=== PATIENT | male | born 1995 ===

== ENCOUNTER 2018-12-26 21:34 | Emergency (ER) | payer OTHER ==
[2018-12-26] MEDS ORDERED: NA CHLORIDE 0.9% 1,000 ML ONE (22:51)
[2018-12-26] MEDS ORDERED: ACETAMINOPHEN 500 MG TAB ONE (22:51)
[2018-12-26 22:52] LABS: Absolute Lymphocytes (CBC) 1.2 K/uL (0.7-4.9); Basophils % 0.2 % (0-1.3); Hematocrit 44.1 % (39.6-49.0); Lymphocytes % 9.2 % (15.3-44.8); RBC Red Blood Cell Count 5.02 M/uL (4.33-5.43)
--- NOTE | 2018-12-26 23:01 | ER ---
Nurse's Notes [facility] Name: Cruz Rueda Age: 23 yrs Sex: Male : 1995 Arrival Date: 12/26/2018 Time: 21:45 Bed 6 Private MD: Diagnosis: Acute tonsillitis;Fever, unspecified Presentation: 12/26 21:50 Presenting complaint: Patient states: "I felt like I had heat exhaustion at 12:00, I've aj1 been really fatigued and my body aches, so I took a cold bath at 5:00 but I still feel like I'm really hot" Denies cough, congestion. Reports nausea. Denies V/D. Transition of care: patient was not received from another setting of care. Onset of symptoms was December 26, 2018 at 12:00. Risk Assessment: Do you want to hurt yourself or someone else? Patient reports no desire to harm self or others. Initial Sepsis Screen: Does the patient meet any 2 criteria? No. Patient's initial sepsis screen is negative. Does the patient have a suspected source of infection? No. Patient's initial sepsis screen is negative. Care prior to arrival: None. 21:50 Method Of Arrival: Ambulatory aj1 21:50 Acuity: BRANNON 4 aj1 Triage Assessment: 21:53 General: Appears in no apparent distress. comfortable, Behavior is calm, cooperative, aj1 appropriate for age. Pain: Denies pain. Neuro: Level of Consciousness is awake, alert, obeys commands. Cardiovascular: Patient's skin is warm and dry. Respiratory: Airway is patent Respiratory effort is even, unlabored, Respiratory pattern is regular, symmetrical. Historical: - Allergies: 21:53 No Known Allergies; aj1 - Home Meds: 21:53 None [Active]; aj1 - PMHx: 21:53 None; aj1 - PSHx: 21:53 lower back fusion; aj1 - Immunization history:: Flu vaccine is up to date. - Social history:: Smoking status: Patient/guardian denies using tobacco. - Ebola Screening: : Patient denies travel to an Ebola-affected area in the 21 days before illness onset. Screenin:00 Abuse screen: Denies threats or abuse. Denies injuries from another. Nutritional ak1 screening: No deficits noted. Tuberculosis screening: No symptoms or risk factors identified. Fall Risk None identified. Assessment: 22:00 General: Appears in no apparent distress. uncomfortable, ill, well groomed, Behavior is ak1 calm, cooperative. Pain: Complains of pain in headache. Neuro: Level of Consciousness is awake, alert, obeys commands, Oriented to person, place, time, situation, [place] Hand are equal bilaterally Moves all extremities. Gait is steady, Speech is normal, Facial symmetry appears normal. Cardiovascular: No deficits noted. Respiratory: Airway is patent Respiratory effort is even, unlabored, Respiratory pattern is regular, symmetrical, Breath sounds are clear bilaterally. GI: Abdomen is round non-distended, Bowel sounds present X 4 quads. Abd is soft and non tender X 4 quads. Reports nausea, tolerance of fluids. : No signs and/or symptoms were reported regarding the genitourinary system. Reports pt reported drinking water and urinating as per his norm. EENT: No signs and/or symptoms were reported regarding the EENT system. Derm: Reports fever since 0100 this morning. Musculoskeletal: Reports fatigue. 22:47 Reassessment: Patient appears in no apparent distress at this time. No changes from ak1 previously documented assessment. Patient and/or family updated on plan of care and expected duration. Pain level reassessed. Patient is alert, oriented x 3, equal unlabored respirations, skin warm/dry/pink. pt updated on approximate time frame for wait for diagnostic results. 23:35 Reassessment: pt fever decreased, pt stated "I feel much better" pt with steady gait at ak1 discharge. Vital Signs: 21:53 BP 146 / 63; Pulse 102; Resp 20; Temp 101.2; Pulse Ox 99% on R/A; Weight 97.52 kg (R); aj1 Height 6 ft. 2 in. (187.96 cm) (R); Pain 0/10; 22:00 BP 128 / 77; Pulse 94; Resp 18; Pulse Ox 97% on R/A; ak1 23:35 BP 120 / 55; Pulse 86; Resp 16; Temp 100.0; Pulse Ox 100% on R/A; Pain 0/10; ak1 21:53 Body Mass Index 27.60 (97.52 kg, 187.96 cm) aj1 ED Course: 21:45 Patient arrived in ED. ag3 21:52 Triage completed. aj1 21:53 Arm band placed on Patient placed in an exam room. aj1 21:56 Jules Jonas MD is Attending Physician. [facility] 22:00 Steph Ortez, RN is Primary Nurse. ak1 22:00 Patient has correct armband on for positive identification. Bed in low position. Call ak1 light in reach. Side rails up X 1. Pulse ox on. NIBP on. Door closed. Lights dimmed. pt informed of possible wait time. pt stated his and 2 children at outside in the car waiting for him to be discharged. 22:41 Inserted saline lock: 20 gauge antecubital area, using aseptic technique. Blood ak1 collected. placed by Steph CURRIE. 22:45 No provider procedures requiring assistance completed. Initial lab(s) drawn, by me, ak1 sent to lab. First set of blood cultures drawn by me, Second set of blood cultures drawn by me, X-ray(s) taken. 22:47 Chest Single View XRAY In Process Unspecified. EDMS 22:47 Chest Single View XRAY Sent. ak1 23:36 IV discontinued, intact, bleeding controlled, No redness/swelling at site. ak1 Administered Medications: 22:41 Drug: NS 0.9% 1000 ml Route: IV; Rate: 1 bolus; Site: right antecubital; jd3 23:30 Follow up: IV Status: Completed infusion; IV Intake: 1000ml ak1 22:41 Drug: Tylenol 1000 mg Route: PO; jd3 23:30 Follow up: Response: No adverse reaction ak1 23:30 Drug: Rocephin 1 grams Route: IV; Rate: per protocol; Site: right antecubital; ak1 23:30 Follow up: IV Status: Completed infusion; IV Intake: 10ml ak1 23:30 Drug: Augmentin 875 mg Route: PO; ak1 23:30 Follow up: Response: No adverse reaction ak1 Intake: 23:30 IV: 1000ml; Total: 1000ml. ak1 23:30 IV: 10ml; Total: 1010ml. ak1 Outcome: 23:00 Discharge ordered by . [facility] 23:36 Discharged to home ambulatory, with family. ak1 23:36 Condition: good 23:36 Discharge instructions given to patient, Instructed on discharge instructions, follow up and referral plans. medication usage, Demonstrated understanding of instructions, follow-up care, medications, Prescriptions given X 1. 23:36 Patient left the ED. ak1 Signatures: Dispatcher [employer] EDValerie Menjivar RN RN Jules Dexter MD MD cha Krenek, Amber RN RN [email or web address] Matthew Oscar RN RN Alison Aranda3 Corrections: (The following items were deleted from the chart) 22:47 22:41 Inserted saline lock: 20 gauge 24 gauge antecubital area, using aseptic ak1 technique. Blood collected. placed by Steph gutierrez
--- NOTE | 2018-12-26 23:02 | EDPHYS ---
Physician Documentation [facility] Name: Cruz Rueda Age: 23 yrs Sex: Male : 1995 Arrival Date: 12/26/2018 Time: 21:45 Bed 6 Private MD: ED Physician Jules Jonas HPI: 12/26 22:24 This 23 yrs old Other Male presents to ER via Ambulatory with complaints of Fever. tong 22:24 The patient reports fever, that was measured at 102 degrees Fahrenheit. tong 22:24 Onset: The symptoms/episode began/occurred today. Modifying factors: there are no [facility] obvious modifying factors. Associated signs and symptoms: Pertinent positives: arthralgias, chills, sore throat. Severity of symptoms: At their worst the symptoms were mild moderate in the emergency department the symptoms are unchanged. The patient has not experienced similar symptoms in the past. Historical: - Allergies: 21:53 No Known Allergies; aj1 - Home Meds: 21:53 None [Active]; aj1 - PMHx: 21:53 None; aj1 - PSHx: 21:53 lower back fusion; aj1 - Immunization history:: Flu vaccine is up to date. - Social history:: Smoking status: Patient/guardian denies using tobacco. - Ebola Screening: : Patient denies travel to an Ebola-affected area in the 21 days before illness onset. ROS: 22:25 Eyes: Negative for injury, pain, redness, and discharge, Neck: Negative for injury, tong pain, and swelling, Cardiovascular: Negative for chest pain, palpitations, and edema, Respiratory: Negative for shortness of breath, cough, wheezing, and pleuritic chest pain, Abdomen/GI: Negative for abdominal pain, nausea, vomiting, diarrhea, and constipation, Back: Negative for injury and pain, : Negative for injury, bleeding, discharge, and swelling, MS/Extremity: Negative for injury and deformity, Skin: Negative for injury, rash, and discoloration, Neuro: Negative for headache, weakness, numbness, tingling, and seizure, Psych: Negative for depression, anxiety, suicide ideation, homicidal ideation, and hallucinations, Allergy/Immunology: Negative for hives, rash, and allergies, Endocrine: Negative for neck swelling, polydipsia, polyuria, polyphagia, and marked weight changes, Hematologic/Lymphatic: Negative for swollen nodes, abnormal bleeding, and unusual bruising. 22:25 Constitutional: Positive for body aches, fever, malaise. 22:25 ENT: Positive for sore throat. Exam: 22:25 Constitutional: This is a well developed, well nourished patient who is awake, alert, tong and in no acute distress. Head/Face: Normocephalic, atraumatic. Eyes: Pupils equal round and reactive to light, extra-ocular motions intact. Lids and lashes normal. Conjunctiva and sclera are non-icteric and not injected. Cornea within normal limits. Periorbital areas with no swelling, redness, or edema. Neck: Trachea midline, no thyromegaly or masses palpated, and no cervical lymphadenopathy. Supple, full range of motion without nuchal rigidity, or vertebral point tenderness. No Meningismus. Chest/axilla: Normal chest wall appearance and motion. Nontender with no deformity. No lesions are appreciated. Cardiovascular: Regular rate and rhythm with a normal S1 and S2. No gallops, murmurs, or rubs. Normal PMI, no JVD. No pulse deficits. Respiratory: Lungs have equal breath sounds bilaterally, clear to auscultation and percussion. No rales, rhonchi or wheezes noted. No increased work of breathing, no retractions or nasal flaring. Abdomen/GI: Soft, non-tender, with normal bowel sounds. No distension or tympany. No guarding or rebound. No evidence of tenderness throughout. Back: No spinal tenderness. No costovertebral tenderness. Full range of motion. Male : Normal genitalia with no discharge or lesions. Skin: Warm, dry with normal turgor. Normal color with no rashes, no lesions, and no evidence of cellulitis. MS/ Extremity: Pulses equal, no cyanosis. Neurovascular intact. Full, normal range of motion. Neuro: Awake and alert, GCS 15, oriented to person, place, time, and situation. Cranial nerves II-XII grossly intact. Motor strength 5/5 in all extremities. Sensory grossly intact. Cerebellar exam normal. Normal gait. Psych: Awake, alert, with orientation to person, place and time. Behavior, mood, and affect are within normal limits. 22:25 ENT: Posterior pharynx: Tonsils: with erythema, no exudate, Uvula: normal, midline, swelling, that is mild, erythema, that is mild, exudate, is not appreciated. Vital Signs: 21:53 BP 146 / 63; Pulse 102; Resp 20; Temp 101.2; Pulse Ox 99% on R/A; Weight 97.52 kg (R); aj1 Height 6 ft. 2 in. (187.96 cm) (R); Pain 0/10; 22:00 BP 128 / 77; Pulse 94; Resp 18; Pulse Ox 97% on R/A; ak1 23:35 BP 120 / 55; Pulse 86; Resp 16; Temp 100.0; Pulse Ox 100% on R/A; Pain 0/10; ak1 21:53 Body Mass Index 27.60 (97.52 kg, 187.96 cm) [facility] MDM: 21:56 Patient medically screened. [facility] 22:26 Data reviewed: vital signs, nurses notes, lab test result(s), radiologic studies, plain tong films. 12/26 22:23 Order name: CBC with Diff; Complete Time: 22:57 [facility] 12/26 22:23 Order name: Comprehensive Metabolic Panel; Complete Time: 23:35 [facility] 12/26 22:23 Order name: Strep; Complete Time: 22:57 [facility] 12/26 22:23 Order name: Blood Culture Adult (2) [facility] 12/26 22:23 Order name: Urine Culture [facility] 12/26 22:24 Order name: Flu; Complete Time: 23:35 [facility] 12/26 22:23 Order name: Chest Single View XRAY [facility] 12/26 22:23 Order name: Urine Dipstick-Ancillary (obtain specimen); Complete Time: 23:31 [facility] 12/26 22:23 Order name: PO challenge; Complete Time: 22:41 [facility] 12/26 23:32 Order name: Urine Dipstick--Ancillary (enter results) cm6 Administered Medications: 22:41 Drug: NS 0.9% 1000 ml Route: IV; Rate: 1 bolus; Site: right antecubital; jd3 23:30 Follow up: IV Status: Completed infusion; IV Intake: 1000ml [facility] 22:41 Drug: Tylenol 1000 mg Route: PO; jd3 23:30 Follow up: Response: No adverse reaction [facility] 23:30 Drug: Rocephin 1 grams Route: IV; Rate: per protocol; Site: right antecubital; ak1 23:30 Follow up: IV Status: Completed infusion; IV Intake: 10ml ak1 23:30 Drug: Augmentin 875 mg Route: PO; ak1 23:30 Follow up: Response: No adverse reaction ak1 Disposition: 12/26/18 23:00 Discharged to Home. Impression: Acute tonsillitis, Fever, unspecified. - Condition is Stable. - Discharge Instructions: Tonsillitis, Tonsillitis, [id number], Fever, Adult, [id number]. - Prescriptions for Augmentin 875- 125 mg Oral Tablet - take 1 tablet by ORAL route every 12 hours for 10 days; 20 tablet. - Medication Reconciliation Form, Thank You Letter, Antibiotic Education, Prescription Opioid Use form. - Follow up: Private Physician; When: 2 - 3 days; Reason: Recheck today's complaints, Continuance of care, Re-evaluation by your physician. - Problem is new. - Symptoms have improved. Signatures: Dispatcher [employer] EDValerie Menjivar RN RN aj1 Jules Jonas MD MD cha Krenek, Amber RN RN ak1 Matthew Oscar RN RN jd3 Corrections: (The following items were deleted from the chart) 23:36 23:00 12/26/2018 23:00 Discharged to Home. Impression: Acute tonsillitis; Fever, ak1 unspecified. Condition is Stable. Forms are Medication Reconciliation Form, Thank You Letter, Antibiotic Education, Prescription Opioid Use. Follow up: Private Physician; When: 2 - 3 days; Reason: Recheck today's complaints, Continuance of care, Re-evaluation by your physician. Problem is new. Symptoms have improved. tong
[2018-12-26 23:31] LABS: Albumin 4.5 g/dL (3.4-5.0); BUN Blood Urea Nitrogen 10 mg/dL (7-18); Bicarbonate 28 mmol/L (21-32); Protein, Total 7.6 g/dL (6.4-8.2); Sodium Level 138 mmol/L (136-145)
[2018-12-26 23:32] LABS: Glucose Level 99 mg/dL (74-106)
[2018-12-26 23:33] LABS: ALT/SGPT 28 U/L (12-78); AST/SGOT 25 U/L (15-37); Alkaline Phosphatase 65 U/L (45-117); Bilirubin Total 1.3 mg/dL (0.2-1.0); Potassium 4.5 mmol/L (3.5-5.1)
[2018-12-26 23:35] LABS: Urine Blood NEGATIVE (NEG); Urine Glucose NEGATIVE (NEG); Urine Protein NEGATIVE (NEG); Urine Specific Gravity 1.015 (1.005-1.030)
[2018-12-26] MEDS ORDERED: CEFTRIAXONE/SWI 1gm 1 GM/10 ML SYR ONE (23:35)
[2018-12-26] MEDS ORDERED: AMOX/K CLAV 875 MG TAB ONE (23:35)
--- NOTE | 2018-12-27 08:15 | RAD REPORT ---
EXAM DESCRIPTION: RAD - Chest Single View - 12/26/2018 10:51 pm CLINICAL HISTORY: Cough, body aches COMPARISON: None. TECHNIQUE: AP portable chest image was obtained 2247 hours . FINDINGS: Lungs are clear. Heart and vasculature are normal. No measurable pleural effusion and no p neumothorax. No acute bony abnormality seen. No acute aortic findings suspected. IMPRESSION: No acute cardiopulmonary process.
== END 2018-12-26 23:36 | disposition home or self-care (01) ==
LOC: ER 21:34
DX: J03.90 Acute tonsillitis, unspecified (principal)
CPT/HCPCS: 36415; 71045; 80053; 81003; 85025; 87040; 87081; 87086; 87088; 87804; 96361; 96374; 99284; J0696; J7030